=== PATIENT | female | born 1985 | race African-American/Black ===

== ENCOUNTER 2023-03-01 09:46 | Emergency (ER) | payer MEDICARE, MEDICAID ==
[~2023-03-01] VITALS: Ht 167.6 cm; Wt 113.0 kg
[2023-03-01 09:59] VITALS: BP 131/65; PULSE 100; RESP 20; O2SAT 100
[2023-03-01 10:15] VITALS: TEMP 98.3
[2023-03-01] MEDS ORDERED: ACETAMINOPHEN 500MG TABLET PO ONE (10:15)
[2023-03-01 11:09] LABS: HCG SCREEN NEGATIVE
[2023-03-01] MEDS ORDERED: ACET-2708 MT (13:03)
== END 2023-03-01 13:12 | disposition home or self-care (01) ==
LOC: ER 09:46
DX: U07.1 COVID-19 (principal); R05.9 Cough, unspecified
CPT/HCPCS: 99284; 71045; 87426; 84703; 87430; 87070; C9803